=== PATIENT | male | born 1955 | race Caucasian/White ===

== ENCOUNTER 2020-06-17 17:28 | Inpatient (IN) | payer OTHER, SELFPAY ==
[2020-06-17] VITALS (8 sets, daily range): BP systolic 138–178; BP diastolic 95–101; PULSE 70–115; RESP 16–20; TEMP 36.5–37; O2SAT 94–98; BMI 25.7
--- NOTE | 2020-06-17 18:07 | ED.ABDPAIN ---
HPI - Abdominal Pain General Chief Complaint: Abdominal Pain Stated Complaint: intestinal troubles Time Seen by Provider: 06/17/20 18:00 Source: patient Mode of arrival: Ambulatory Limitations: no limitations History of Present Illness HPI narrative: 64M non smoker without significant medical history presents with a chief complaint of a few days of gradually worsening generalized abdominal pain nausea, few episodes of vomiting and bloating. He is concerned that he ate some bad food on Tuesday night as he consumed a meal he obtained from [employer] and had been out longer than it probably should have. He denies any fever chills and has had no diarrhea. His pain is periumbilical and worse with motion and improves with rest. He has decreased appetite. He had a small hard stool this morning but nothing since. His only surgical history is of of umbilical hernia repair when he was an infant MD complaint: abdominal pain Onset (ago): day(s) Pain Consistency: constant Location: periumbilical Severity: moderate Quality: cramping Migration to: no migration Relieving factors: nothing and rest Exacerbating factors: movement Associated symptoms: nausea and vomiting Related Data Home Medications Medication Instructions Recorded Confirmed lisinopril 5 mg PO DAILY 06/17/20 06/17/20 Allergies Allergy/AdvReac Type Severity Reaction Status Date / Time No Known Drug Allergies Allergy Verified 06/17/20 17:39 Review of Systems Constitutional Constitutional: Denies chills, Denies fatigue, Denies fever(s), Denies frequent falls, Denies lethargy and Denies weakness Eyes Eyes: Denies change in vision, Denies eye discharge, Denies irritation and Denies loss of vision ENT Ears, Nose, Mouth, and Throat: Denies change in voice, Denies dizziness, Denies neck pain, Denies sore throat and Denies throat swelling Cardiovascular Cardiovascular: Denies chest pain, Denies irregular heart rhythm, Denies lightheadedness, Denies palpitations, Denies dyspnea, Denies dyspnea on exertion and Denies orthopnea Respiratory Respiratory: Denies cough, Denies dyspnea, Denies dyspnea on exertion and Denies wheezing Gastrointestinal Gastrointestinal: Reports abdominal pain, Reports change in bowel habits, Denies diarrhea, Reports nausea and Reports vomiting Musculoskeletal Musculoskeletal: Denies neck pain and Denies numbness Integumentary/Breasts Skin/Breast: Denies pruritus, Denies erythema, Denies rash and Denies wounds Neurologic Neurologic: Denies behavioral changes, Denies confusion, Denies dizziness, Denies frequent falls, Denies loss of vision, Denies numbness and Denies weakness Psychiatric Psychiatric: Denies anxiety, Denies behavioral changes, Denies confusion, Denies depression, Denies homicidal ideation and Denies suicidal ideation Endocrine Endocrine: Denies fatigue, Denies flushing and Denies palpitations Hematologic/Lymphatic Hematologic/Lymphatic: Denies easy bruising Allergic/Immunologic Allergic/Immunologic: Denies urticaria, Denies throat swelling and Denies wheezing Patient History Social History household members: spouse Smoking Status: Never smoker alcohol intake: former Smoking Status: Never smoker alcohol intake frequency: 0-2 drinks per day Substance Use Type: does not use Exam Narrative Exam Narrative: GENERAL: [64] year old patient appears stated age. Well-nourished, well-developed patient, in mild distress. HEAD: Atraumatic. Normocephalic. EYES: Pupils equal round and reactive. Extraocular motions intact. No scleral icterus. No injection or drainage. ENT: Nose without bleeding, purulent drainage. Throat without erythema, tonsillar hypertrophy or exudate. Airway patent. NECK: Trachea midline. Non tender CARDIOVASCULAR: Regular rate and rhythm without murmurs, gallops, or rubs. RESPIRATORY: Clear to auscultation. Breath sounds equal bilaterally. No wheezes, rales, or rhonchi. GASTROINTESTINAL: Abdomen soft, mildly distended, mildly tender in the periumbilical region with decreased bowel sounds throughout. EXTREMITIES: No edema or joint tenderness. BACK: Nontender without deformity or crepitance. No flank tenderness. NEURO: AOx3. SKIN: No rash or erythema of visible areas Initial Vital Signs Initial Vital Signs: Vital Signs Temperature 97.7 F 06/17/20 17:35 Pulse Rate 115 H 06/17/20 17:35 Respiratory Rate 20 06/17/20 17:35 Blood Pressure 157/98 H 06/17/20 17:35 Pulse Oximetry 96 06/17/20 17:35 Scores ABCD2 Citation: Lancet. 2006Nov 05;369(1151):283-92. Validation and refinement of scores to predict very early stroke risk after transient ischaemic attack. Rhianna SC1, Brent PM, Antony MN, Jesus MF, Chad JS, Moon AL, Jefe Oliva Course Orders Ordered: ED Orders 06/17/20 17:51 EKG-12 Lead Stat 06/17/20 17:53 Complete Blood Count AUTO DIFF Stat Comprehensive Metabolic Panel Stat Lipase Stat Partial Thromboplastin Time Stat Prothrombin Time INR Stat 06/17/20 18:25 XR acute abdomen series Stat 06/17/20 18:52 COVID19 -ED/INPAT/OR/L&D Stat 06/17/20 18:54 CT abdomen pelvis w con Stat Benzocaine (Cepacol Lozenge) 1 each PO Q4HR PRN PRN Reason: Sore Throat Benzocaine/Butamben/Tetracaine HCl (Cetacaine [place]) 1 spray TOP PRN PRN PRN Reason: Sore Throat Lactated Ringer's (Lactated Ringers) 1,000 mls @ 125 mls/hr IV CONT KETURAH Last Admin: 06/17/20 21:09 Dose: 125 mls/hr Documented by: CLIFF Ondansetron HCl (Zofran) 4 mg IV Q4HR PRN PRN Reason: Nausea And Vomiting Discontinued Medications Sodium Chloride (Normal Saline 0.9%) 1,000 mls @ 1,000 mls/hr IV BOLUS ONE Stop: 06/17/20 19:28 Last Infusion: 06/17/20 20:24 Dose: 0 mls/hr Documented by: Admin: 06/17/20 18:38 Dose: 1,000 mls/hr Documented by: ARTEM Consultations Consultation #1: call to Dr. Zaidi after seeing Xray, she recommends CT, NG tube, and admission Vital Signs Vital signs: Vital Signs - 8 hr 06/17/20 17:35 06/17/20 18:36 06/17/20 19:07 Temperature 97.7 F Pulse Rate 115 H 99 H 92 H Respiratory Rate 20 Blood Pressure 157/98 H 159/98 H Pulse Oximetry 96 94 97 06/17/20 19:08 Temperature Pulse Rate 91 H Respiratory Rate Blood Pressure 138/97 H Pulse Oximetry 97 MDM - Abdominal Pain Lab Data Result diagrams: 06/17/20 17:53 06/17/20 17:53 Labs: Lab Results 09/08/20 09/08/20 09/08/20 Range/Units 17:53 17:53 17:53 WBC 9.7 (4.5-11.0) X10^3/uL RBC 5.34 (4.5-5.9) X10^6/uL Hgb 16.4 (13.5-17.5) g/dL Hct 48.3 (41-53) % MCV 90.5 (80-100) fL MCH 30.6 (26-34) PG MCHC 33.9 (30-36) % RDW 13.5 (11.6-14.8) % Plt Count 252 (150-400) X10^3/uL Neut % (Auto) 74.6 (50-75) % Lymph % (Auto) 12.3 L (25-40) % [place] % (Auto) 12.5 (3-14) % Eos % (Auto) 0.3 L (2-4) % Baso % (Auto) 0.3 (0-2) % Neut # (Auto) 7200 H (0044-0613) /uL Lymph # (Auto) 1200 (2421-9228) /uL [place] # (Auto) 1200 H (0-900) /uL Eos # (Auto) 0 (0-450) /uL Baso # (Auto) 0 (0-100) /uL PT 14.3 H (10.1-12.7) SECONDS INR 1.2 (0.9-1.3) APTT 31 (26.4-36.2) SECONDS Sodium 136 L (137-145) mmol/L Potassium 3.8 (3.4-5.1) mmol/L Chloride 97 L (98-107) mmol/L Carbon Dioxide 30 (22-32) mmol/L BUN 35 H (9-20) mg/dL Creatinine 0.92 (0.66-1.25) mg/dL Estimated GFR > 60.0 (>60) mL/min BUN/Creatinine Ratio 38.0 H (6-22) Glucose 142 H (80-110) mg/dL Calcium 9.7 (8.4-10.2) mg/dL Total Bilirubin 1.1 (0.2-1.3) mg/dL AST 32 (17-59) IU/L ALT 22 (<50) IU/L Alkaline Phosphatase 66 (38-126) U/L Total Protein 7.9 (6.3-8.2) g/dL Albumin 4.3 (3.5-5.0) g/dL Globulin 3.6 (1.7-4.1) g/dL Albumin/Globulin Ratio 1.2 (1.0-2.8) Lipase 160 (23-300) U/L COVID-19 PCR (Negative) 06/17/20 Range/Units 18:52 WBC (4.5-11.0) X10^3/uL RBC (4.5-5.9) X10^6/uL Hgb (13.5-17.5) g/dL Hct (41-53) % MCV (80-100) fL MCH (26-34) PG MCHC (30-36) % RDW (11.6-14.8) % Plt Count (150-400) X10^3/uL Neut % (Auto) (50-75) % Lymph % (Auto) (25-40) % [place] % (Auto) (3-14) % Eos % (Auto) (2-4) % Baso % (Auto) (0-2) % Neut # (Auto) (8788-4445) /uL Lymph # (Auto) (9194-9581) /uL [place] # (Auto) (0-900) /uL Eos # (Auto) (0-450) /uL Baso # (Auto) (0-100) /uL PT (10.1-12.7) SECONDS INR (0.9-1.3) APTT (26.4-36.2) SECONDS Sodium (137-145) mmol/L Potassium (3.4-5.1) mmol/L Chloride (98-107) mmol/L Carbon Dioxide (22-32) mmol/L BUN (9-20) mg/dL Creatinine (0.66-1.25) mg/dL Estimated GFR (>60) mL/min BUN/Creatinine Ratio (6-22) Glucose (80-110) mg/dL Calcium (8.4-10.2) mg/dL Total Bilirubin (0.2-1.3) mg/dL AST (17-59) IU/L ALT (<50) IU/L Alkaline Phosphatase (38-126) U/L Total Protein (6.3-8.2) g/dL Albumin (3.5-5.0) g/dL Globulin (1.7-4.1) g/dL Albumin/Globulin Ratio (1.0-2.8) Lipase (23-300) U/L COVID-19 PCR Negative (Negative) Imaging Data CT scan - abdomen/pelvis: Radiologist's Impression: Chart Viewer Diagnostics DATE TYPE STATUS REF RANGE/AUTHOR Hx 06/17/20 19:46 CristobalSerenity 06/17/20 18:54 Serenity Jain 06/17/20 18:25 Serenity Jain Timothy 64, M1955 ADM IN, AC 218 -1 187.96cm 90.718kg BMI: 25.7kg/m? Search Chart No Data to Display ONSET 06/17/20 23:53 Lul Mckinnon 64 M 1955 [place] [address] CT Scan Report Signed Patient: Lul MckinnonMR#: [id number] : 4Acct:[id number] Age/Sex: 64 / MDate of Service: 06/17/20 Loc: OD17B-9 Accession Number: [id number] Procedure: CT abdomen pelvis w con Ordering Provider: Nando Fregoso D.O. PROCEDURE: CT ABDOMEN PELVIS W CON INDICATIONS: SBO TECHNIQUE: After the administration of intravenous contrast, 5 mm thick sections acquired from the diaphragm to the symphysis. 5 mm coronal and sagittal reformats were acquired. For radiation dose reduction, the following was used: automated exposure control, adjustment of mA and/or kV according to patient size. COMPARISON: [facility], CR, XR ACUTE ABDOMEN SERIES, 06/17/2020, 18:18. FINDINGS: Image quality: Excellent. ABDOMEN: Lung bases: Lung bases are clear. Heart size is normal. Solid organs: Liver is normal in size and enhancement. Hepatic steatosis is present. Multiple low-attenuation foci are present with Hounsfield units less than 20. The largest is present in the anterior right hepatic lobe measuring 36 mm. Gallbladder is unremarkable . Biliary system is non dilated. Pancreas enhances normally. Spleen is normal in size and enhancement. No adrenal nodules. Kidneys demonstrate normal size and enhancement, without hydronephrosis. Punctate non-obstructing inferior right renal pole calculus is present. Peritoneum and bowel: Bowel loops demonstrate significantly dilated fluid-filled loops of small bowel including prominent gastric dilation. Greatest dimension of gas of small-bowel dilation measures 39 mm. Transition point appears to be within the right madelaine abdomen on series 2, image 55. In addition, it is noted that there is Nodes and vessels: No retroperitoneal or mesenteric adenopathy by size criteria. Aorta and inferior vena cava are normal in size. Miscellaneous: No ventral hernias. PELVIS: Genitourinary: Bladder wall thickness is normal. Miscellaneous: There is small low-density focus within the right inguinal canal which appears to represent fluid. This area of fluid becomes contiguous with a dilated loop of adjacent small bowel within the anterior pelvis. No definitive bowel is identified within the hernia site. Bones: No suspicious bony lesions. No vertebral body compression fractures. IMPRESSION: 1. Partial small bowel obstruction as above. Transition point appears to be within the right hemiabdomen as above. 2. In addition, small focus of fluid within the right inguinal canal becoming approximated with a dilated loop of small bowel within the pelvis. This appears to represent fluid without definitively identified bowel. However, recommend correlation to pain within this region as a very small focus of collapsed bowel obscured by fluid cannot be definitively excluded. Dictated by: Serenity Jain M.D. on 06/17/2020 at 19:45 Approved by: Serenity Jain M.D. on 06/17/2020 at 19:52 Discharge Plan Departure Patient Disposition: Admitted As Inpatient Clinical Impression: Small bowel obstruction Discharge Date/Time: 06/17/20 20:25 Admit Date/Time: 06/17/20 19:25 Admit Provider: Pam Zaidi
[2020-06-17 18:10] LABS: Add Manual Diff / Slide Review NO; Basophils Absolute Auto 0 /uL (0-100); Basophils Percent Auto 0.3 % (0-2); Eosinophils Absolute Auto 0 /uL (0-450); Eosinophils Percent Auto 0.3 % (2-4); Hematocrit 48.3 % (41-53); Hemoglobin 16.4 g/dL (13.5-17.5); Lymphocytes Absolute Auto 1200 /uL (1100-4500); Lymphocytes Percent Auto 12.3 % (25-40); Mean Corpuscular HGB Conc 33.9 % (30-36); Mean Corpuscular Hemoglobin 30.6 PG (26-34); Mean Corpuscular Volume 90.5 fL (80-100); Monocytes Absolute Auto 1200 /uL (0-900); Monocytes Percent Auto 12.5 % (3-14); Neutrophils Absolute Auto 7200 /uL (1500-7000); Neutrophils Percent Auto 74.6 % (50-75); Platelet Count 252 X10^3/uL (150-400); Red Blood Cell Count 5.34 X10^6/uL (4.5-5.9); Red Cell Distribution Width 13.5 % (11.6-14.8); White Blood Cell Count 9.7 X10^3/uL (4.5-11.0)
[2020-06-17 18:14] LABS: INR 1.2 (0.9-1.3); Prothrombin Time 14.3 SECONDS (10.1-12.7)
[2020-06-17 18:17] LABS: PTT Partial Thromboplastin Tim 31 SECONDS (26.4-36.2)
[2020-06-17 18:18] LABS: Alanine Aminotransferase 22 IU/L (<50); Albumin 4.3 g/dL (3.5-5.0); Albumin Globulin Ratio 1.2 (1.0-2.8); Alkaline Phosphatase 66 U/L (38-126); Aspartate Aminotransferase 32 IU/L (17-59); Bilirubin Total 1.1 mg/dL (0.2-1.3); Blood Urea Nitrogen 35 mg/dL (9-20); Calcium 9.7 mg/dL (8.4-10.2); Carbon Dioxide 30 mmol/L (22-32); Chloride 97 mmol/L (98-107); Estimated Glomerular Filt Rate > 60.0 mL/min (>60); Globulin 3.6 g/dL (1.7-4.1); Glucose 142 mg/dL (80-110); HEMOLYSIS < 15 (0-50); Lipase 160 U/L (23-300); Potassium 3.8 mmol/L (3.4-5.1); Sodium 136 mmol/L (137-145); Total Protein 7.9 g/dL (6.3-8.2)
--- NOTE | 2020-06-17 18:25 | DI.RAD.S_ITS ---
PROCEDURE: XR ACUTE ABDOMEN SERIES INDICATIONS: Abdominal pain, N/V, fullness TECHNIQUE: One view chest and two views of the abdomen were acquired. COMPARISON: None. FINDINGS: Surgical changes and devices: None. Chest: Lungs are clear. Heart size is normal. No pleural effusions. No pneumoperitoneum. Abdomen: [id number]-kveixfiz fluid-filled dilation of small bowel loops with air-fluid levels. No suspicious calcifications. Visualized solid organ contours appear normal. Bones: No suspicious bony lesions. IMPRESSION: [id number] partial small bowel obstruction. Dictated by: Serenity Jain M.D. on 06/17/2020 at 18:41 Approved by: Serenity Jain M.D. on 06/17/2020 at 18:41
[2020-06-17] MEDS: SODIUM CHLORIDE 0.9% 1,000 ML 1000 ML IV (18:38)
--- NOTE | 2020-06-17 18:54 | DI.CT.S_ITS ---
PROCEDURE: CT ABDOMEN PELVIS W CON INDICATIONS: SBO TECHNIQUE: After the administration of intravenous contrast, 5 mm thick sections acquired from the diaphragm to the symphysis. 5 mm coronal and sagittal reformats were acquired. For radiation dose reduction, the following was used: automated exposure control, adjustment of mA and/or kV according to patient size. COMPARISON: [facility], CR, XR ACUTE ABDOMEN SERIES, 06/17/2020, 18:18. FINDINGS: Image quality: Excellent. ABDOMEN: Lung bases: Lung bases are clear. Heart size is normal. Solid organs: Liver is normal in size and enhancement. Hepatic steatosis is present. Multiple low-attenuation foci are present with Hounsfield units less than 20. The largest is present in the anterior right hepatic lobe measuring 36 mm. Gallbladder is unremarkable . Biliary system is non dilated. Pancreas enhances normally. Spleen is normal in size and enhancement. No adrenal nodules. Kidneys demonstrate normal size and enhancement, without hydronephrosis. Punctate non-obstructing inferior right renal pole calculus is present. Peritoneum and bowel: Bowel loops demonstrate significantly dilated fluid-filled loops of small bowel including prominent gastric dilation. Greatest dimension of gas of small-bowel dilation measures 39 mm. Transition point appears to be within the right madelaine abdomen on series 2, image 55. In addition, it is noted that there is Nodes and vessels: No retroperitoneal or mesenteric adenopathy by size criteria. Aorta and inferior vena cava are normal in size. Miscellaneous: No ventral hernias. PELVIS: Genitourinary: Bladder wall thickness is normal. Miscellaneous: There is small low-density focus within the right inguinal canal which appears to represent fluid. This area of fluid becomes contiguous with a dilated loop of adjacent small bowel within the anterior pelvis. No definitive bowel is identified within the hernia site. Bones: No suspicious bony lesions. No vertebral body compression fractures. IMPRESSION: 1. Partial small bowel obstruction as above. Transition point appears to be within the right hemiabdomen as above. 2. In addition, small focus of fluid within the right inguinal canal becoming approximated with a dilated loop of small bowel within the pelvis. This appears to represent fluid without definitively identified bowel. However, recommend correlation to pain within this region as a very small focus of collapsed bowel obscured by fluid cannot be definitively excluded. Dictated by: Serenity Jain M.D. on 06/17/2020 at 19:45 Approved by: Serenity aJin M.D. on 06/17/2020 at 19:52
[2020-06-17 19:14] LABS: COVID19 -Nasal RAPID Negative (Negative)
--- NOTE | 2020-06-17 19:46 | DI.RAD.S_ITS ---
PROCEDURE: XR CHEST 1V INDICATIONS: NG tube placement check TECHNIQUE: One view of the chest was acquired. COMPARISON: [facility], CT, CT ABDOMEN PELVIS W CON, 06/17/2020, 18:59. [facility], CR, XR ACUTE ABDOMEN SERIES, 06/17/2020, 18:18. FINDINGS: Surgical changes and devices: There has been interval placement of nasogastric tube with distal tip projecting below the left hemidiaphragm. Lungs and pleura: Lungs are clear. No pleural effusions or pneumothorax. Mediastinum: Mediastinal contours appear normal. Heart size is normal. Bones and chest wall: No suspicious bony lesions. Overlying soft tissues appear unremarkable. Miscellaneous: Dilated fluid-filled loops of small bowel are noted within visualized portions of the abdomen. IMPRESSION: Interval placement nasogastric tube as above. Dilated fluid-filled loops of small bowel as above consistent with prior identification of partial small bowel obstruction. Dictated by: Serenity Jain M.D. on 06/17/2020 at 20:14 Approved by: Serenity Jain M.D. on 06/17/2020 at 20:14
[2020-06-17 19:59] LABS: Bacteria Urine None Seen; RBC Urine None Seen (0-5/HPF)
[2020-06-17 20:08] LABS: Calcium Oxalate Crystals Urine Few; Culture Indicated Urine Cult Not Indicated; WBC Urine 0-1/HPF (0-5/HPF)
--- NOTE | 2020-06-17 20:23 | PM.HP.1 ---
History of Present Illness History of Present Illness Date Patient Seen: 06/17/20 Time Patient Seen: 20:23 Chief complaint: intestinal troubles Narrative: This is a 64 yo man with history of HTN, bilateral inguinal hernia repair as a child, and recurrent inguinal hernia on the right side. On Tuesday he ate some chicken that had been sitting out for a while. Afterward, he began to have stomach cramps. The pain down into a bloated feeling, but he has not passed any gas since Tuesday. He had a small hard BM yesterday. He came into the ER because he could not get any relief. He has never had an episode like this before. He reports that he is very healthy. PMH: HTN PSH: bilateral inguinal hernia repair in childhood SOC: denies tob, denies EtOH for past 1 year, occasional marijuana FMH: denies HTN, DM, GI disorders ALlergies: denies HOme meds: Lisinopril ROS: Pt denies headache, fever, weight loss, dysuria, confusion, melena, hematochezia. Thirteen system review is otherwise negative other than as mentioned below and in HPI. PE: GENERAL: Well groomed and cooperative. Appears stated age. Answers questions promptly and appropriately. Vital signs noted. HENT: Normocephalic, atraumatic. Hearing intact. Oral mucosa is pink and moist. NGT in place sumping thick brown and bilious material EYES: Conjunctiva pink, sclera white, no periorbital swelling. CARDIOVASCULAR: Regular rate. No pedal edema. RESPIRATORY: Non-tachypneic, breathing comfortably on room air. GASTROINTESTINAL: Abdomen soft, nontender, moderately distended GENITALURINARY: No flank tenderness. soft, reducible right inguinal hernia, no palpable left inguinal hernia MUSCULOSKELETAL: Equal tone and mass bilaterally. SKIN: Warm, dry, soft, appropriate color for ethnicity. No other lesions, rashes, or wounds. NEURO: Alert and Oriented X 3. No gross sensory deficits, or cognitive issues. PSYCH: Appropriate mood and affect, normal intellect Patient History Family & Social History Safety & Behavioral: Feels Safe in Current Yes Environment Been Physically Hurt or No Threatened By a Person Tobacco & Substance use: Smoking Status Never smoker alcohol intake frequency 0-2 drinks per day Substance Use Type does not use Meds Home Medications and Allergies Home Medications Medication Instructions Recorded Confirmed Type lisinopril 5 mg PO DAILY 06/17/20 06/17/20 History Allergies Allergy/AdvReac Type Severity Reaction Status Date / Time No Known Drug Allergies Allergy Verified 06/17/20 17:39 Exam Vital Signs (past 8 hours): - 06/17/20 17:35 06/17/20 18:36 06/17/20 19:07 Temperature 97.7 F Pulse Rate 115 H 99 H 92 H Respiratory Rate 20 Blood Pressure 157/98 H 159/98 H Pulse Oximetry 96 94 97 06/17/20 19:08 06/17/20 19:30 06/17/20 20:11 Temperature Pulse Rate 91 H 83 90 Respiratory Rate Blood Pressure 138/97 H 167/95 H Pulse Oximetry 97 97 96 Oxygen Delivery Method Room Air Objective Imaging CT scan - abdomen: Radiologist's impression: [address] [address] [address] Scan Report Signed Patient: Lul MckinnonMR#: [id number] : 4Acct:[id number] Age/Sex: 64 / MDate of Service: 06/17/20 Loc: [id number]-4 Accession Number: [id number] Procedure: CT abdomen pelvis w con Ordering Provider: Nando Fregoso D.O. PROCEDURE: CT ABDOMEN PELVIS W CON INDICATIONS: SBO TECHNIQUE: After the administration of intravenous contrast, 5 mm thick sections acquired from the diaphragm to the symphysis. 5 mm coronal and sagittal reformats were acquired. For radiation dose reduction, the following was used: automated exposure control, adjustment of mA and/or kV according to patient size. COMPARISON: [facility], CR, XR ACUTE ABDOMEN SERIES, 06/17/2020, 18:18. FINDINGS: Image quality: Excellent. ABDOMEN: Lung bases: Lung bases are clear. Heart size is normal. Solid organs: Liver is normal in size and enhancement. Hepatic steatosis is present. Multiple low-attenuation foci are present with Hounsfield units less than 20. The largest is present in the anterior right hepatic lobe measuring 36 mm. Gallbladder is unremarkable . Biliary system is non dilated. Pancreas enhances normally. Spleen is normal in size and enhancement. No adrenal nodules. Kidneys demonstrate normal size and enhancement, without hydronephrosis. Punctate non-obstructing inferior right renal pole calculus is present. Peritoneum and bowel: Bowel loops demonstrate significantly dilated fluid-filled loops of small bowel including prominent gastric dilation. Greatest dimension of gas of small-bowel dilation measures 39 mm. Transition point appears to be within the right madelaine abdomen on series 2, image 55. In addition, it is noted that there is Nodes and vessels: No retroperitoneal or mesenteric adenopathy by size criteria. Aorta and inferior vena cava are normal in size. Miscellaneous: No ventral hernias. PELVIS: Genitourinary: Bladder wall thickness is normal. Miscellaneous: There is small low-density focus within the right inguinal canal which appears to represent fluid. This area of fluid becomes contiguous with a dilated loop of adjacent small bowel within the anterior pelvis. No definitive bowel is identified within the hernia site. Bones: No suspicious bony lesions. No vertebral body compression fractures. IMPRESSION: 1. Partial small bowel obstruction as above. Transition point appears to be within the right hemiabdomen as above. 2. In addition, small focus of fluid within the right inguinal canal becoming approximated with a dilated loop of small bowel within the pelvis. This appears to represent fluid without definitively identified bowel. However, recommend correlation to pain within this region as a very small focus of collapsed bowel obscured by fluid cannot be definitively excluded. Dictated by: Serenity Jain M.D. on 06/17/2020 at 19:45 Approved by: Serenity Jain M.D. on 06/17/2020 at 19:52 Labs Result Diagrams: 06/17/20 17:53 06/17/20 17:53 Labs: Laboratory Results - last 24 hr 06/17/20 06/17/20 06/17/20 17:53 17:53 17:53 WBC 9.7 RBC 5.34 Hgb 16.4 Hct 48.3 MCV 90.5 MCH 30.6 MCHC 33.9 RDW 13.5 Plt Count 252 Neut % (Auto) 74.6 Lymph % (Auto) 12.3 L [place] % (Auto) 12.5 Eos % (Auto) 0.3 L Baso % (Auto) 0.3 Neut # (Auto) 7200 H Lymph # (Auto) 1200 [place] # (Auto) 1200 H Eos # (Auto) 0 Baso # (Auto) 0 PT 14.3 H INR 1.2 APTT 31 Sodium 136 L Potassium 3.8 Chloride 97 L Carbon Dioxide 30 BUN 35 H Creatinine 0.92 Estimated GFR > 60.0 BUN/Creatinine Ratio 38.0 H Glucose 142 H Calcium 9.7 Total Bilirubin 1.1 AST 32 ALT 22 Alkaline Phosphatase 66 Total Protein 7.9 Albumin 4.3 Globulin 3.6 Albumin/Globulin Ratio 1.2 Lipase 160 Urine RBC Urine WBC Calcium Oxalate Crystal Urine Bacteria Ur Culture Indicated? COVID-19 PCR 06/17/20 06/17/20 18:52 19:37 WBC RBC Hgb Hct MCV MCH MCHC RDW Plt Count Neut % (Auto) Lymph % (Auto) [place] % (Auto) Eos % (Auto) Baso % (Auto) Neut # (Auto) Lymph # (Auto) [place] # (Auto) Eos # (Auto) Baso # (Auto) PT INR APTT Sodium Potassium Chloride Carbon Dioxide BUN Creatinine Estimated GFR BUN/Creatinine Ratio Glucose Calcium Total Bilirubin AST ALT Alkaline Phosphatase Total Protein Albumin Globulin Albumin/Globulin Ratio Lipase Urine RBC None seen Urine WBC 0-1/hpf Calcium Oxalate Crystal Few H Urine Bacteria None seen Ur Culture Indicated? Cult not indicated COVID-19 PCR Negative Assessment & Plan Assessment and plan (1) Small bowel obstruction: Status: Acute (2) History of right inguinal hernia repair: Status: Acute (3) Recurrent right inguinal hernia: Status: Acute (4) Hypertension: Status: Acute Assessment & Plan narrative: This is a 64 yo man with SBO, which appears to be due to adhesions in his RLQ near his inguinal hernia, but not incarcerated in it. He had a prior repair there as a child and could possibly have an adhesions causing the obstruction. Plan: NPO NGT IV fluids electrolyte repletion ambulate as tolerated SBFT in AM COVID-19 COVID-19 status: Negative Result date/Date tested (Pos, Neg/Pending): 06/17/20 Time Spent With Patient Time with patient: 25 - 35 minutes Quality VTE Deep Vein Thrombosis/Pulmonary Embolism Present on Admission: No
[2020-06-17] MEDS: LACTATED RINGERS 1,000 ML 125 ML IV (21:09)
--- NOTE | 2020-06-17 23:08 | PC.NURSE ---
A&OX4. denied pain. feels bloated. NG tube was not suctioning. NG was flushed with water and air frequently. NG output is very thick, greenish fluid. abdomen slightly distended, reports feeling better after 1450cc NG output. per provider, set NG tube low intermittent suction. provider aware regarding the need for patient's NG tube to be flushed.
[2020-06-18 05:12] LABS: Add Manual Diff / Slide Review NO; Basophils Absolute Auto 0 /uL (0-100); Basophils Percent Auto 0.5 % (0-2); Eosinophils Absolute Auto 100 /uL (0-450); Eosinophils Percent Auto 1.6 % (2-4); Hematocrit 44.6 % (41-53); Lymphocytes Absolute Auto 1300 /uL (1100-4500); Lymphocytes Percent Auto 17.9 % (25-40); Mean Corpuscular HGB Conc 33.5 % (30-36); Mean Corpuscular Hemoglobin 30.5 PG (26-34); Monocytes Absolute Auto 1200 /uL (0-900); Monocytes Percent Auto 15.9 % (3-14); Neutrophils Absolute Auto 4800 /uL (1500-7000); Neutrophils Percent Auto 64.1 % (50-75); Platelet Count 197 X10^3/uL (150-400); Red Cell Distribution Width 13.4 % (11.6-14.8); White Blood Cell Count 7.4 X10^3/uL (4.5-11.0)
[2020-06-18 05:17] LABS: BUN Creatinine Ratio 45.9 (6-22); Blood Urea Nitrogen 34 mg/dL (9-20); Carbon Dioxide 32 mmol/L (22-32); Chloride 100 mmol/L (98-107); Estimated Glomerular Filt Rate > 60.0 mL/min (>60); Glucose 103 mg/dL (80-110); HEMOLYSIS < 15 (0-50); Magnesium 1.9 mg/dL (1.6-2.3); Phosphorous 3.9 mg/dL (2.3-3.7); Potassium 3.7 mmol/L (3.4-5.1); Sodium 136 mmol/L (137-145)
[2020-06-18] MEDS: LACTATED RINGERS 1,000 ML 125 ML IV (05:31)
[2020-06-18 05:51] VITALS: BP 138/86; PULSE 69; RESP 16; TEMP 36.2; O2SAT 94
[2020-06-18] MEDS: KCL 40 MEQ IN NS 1,000 ML 100 MEQ IV (06:29)
[2020-06-18] MEDS: MAGNESIUM SULFATE 2 GM/50 ML PIGGYBACK IV (06:30)
--- NOTE | 2020-06-18 07:00 | DI.RAD.S_ITS ---
PROCEDURE: [place] SMALL BOWEL FOLLOW THROUGH INDICATIONS: SBO, diagnostic and therapeutic COMPARISON: [facility], CT, CT ABDOMEN PELVIS W CON, 06/17/2020, 18:59. FINDINGS: KUB: Preprocedural claims technician film demonstrates persistence of multiple scattered loops of dilated small bowel as noted on comparison CT dated June 17, 2020. No suspicious abdominal calcifications. Visualized solid organ contours appear normal. No suspicious bony abnormalities. Small bowel/colon: There is prolonged transit time of oral contrast through the small bowel. Imaging of the abdomen approximately 10 hours after administration of oral contrast before oral contrast material is visualized within the colon. Contrast material is noted in the rectum at the end of the exam. There is persistent dilated loops of small bowel measuring up to 5 cm in diameter. Mucosal folds are smooth and of normal thickness. No strictures, intraluminal masses, or extrinsic mass effects are noted. IMPRESSION: Persistent dilated loops of small bowel with prolonged transit of ingested oral contrast from the stomach to the rectum. Dictated by: Linus nOeal M.D. on 06/18/2020 at 19:39 Approved by: Linus Oneal M.D. on 06/18/2020 at 19:47
--- NOTE | 2020-06-18 07:47 | PM.PN.1 ---
Subjective Subjective Date Patient Seen: 06/18/20 Time Patient Seen: 07:47 Interval history: No acute events overnight. Nurses flushed and suctioned very thick fluid through the NGT until it was finally sumping well. The patient says he feels less bloated today. He denies flatus or pain. Exam Vital Signs (past 8 hours): - 06/17/20 23:53 06/18/20 05:51 Temperature 97.9 F 97.2 F L Pulse Rate 70 69 Respiratory Rate 18 16 Blood Pressure 144/98 H 138/86 Pulse Oximetry 95 94 Oxygen Delivery Method Room Air Oxygen Flow Rate 0 Objective Labs Result Diagrams: 06/18/20 04:50 06/18/20 04:50 Labs: Laboratory Results - last 24 hr 06/17/20 06/17/20 06/17/20 17:53 17:53 17:53 WBC 9.7 RBC 5.34 Hgb 16.4 Hct 48.3 MCV 90.5 MCH 30.6 MCHC 33.9 RDW 13.5 Plt Count 252 Neut % (Auto) 74.6 Lymph % (Auto) 12.3 L [place] % (Auto) 12.5 Eos % (Auto) 0.3 L Baso % (Auto) 0.3 Neut # (Auto) 7200 H Lymph # (Auto) 1200 [place] # (Auto) 1200 H Eos # (Auto) 0 Baso # (Auto) 0 PT 14.3 H INR 1.2 APTT 31 Sodium 136 L Potassium 3.8 Chloride 97 L Carbon Dioxide 30 BUN 35 H Creatinine 0.92 Estimated GFR > 60.0 BUN/Creatinine Ratio 38.0 H Glucose 142 H Calcium 9.7 Phosphorus Magnesium Total Bilirubin 1.1 AST 32 ALT 22 Alkaline Phosphatase 66 Total Protein 7.9 Albumin 4.3 Globulin 3.6 Albumin/Globulin Ratio 1.2 Lipase 160 Urine RBC Urine WBC Calcium Oxalate Crystal Urine Bacteria Ur Culture Indicated? COVID-19 PCR 06/17/20 06/17/20 06/18/20 18:52 19:37 04:50 WBC 7.4 RBC 4.90 Hgb 15.0 Hct 44.6 MCV 91.0 MCH 30.5 MCHC 33.5 RDW 13.4 Plt Count 197 Neut % (Auto) 64.1 Lymph % (Auto) 17.9 L [place] % (Auto) 15.9 H Eos % (Auto) 1.6 L Baso % (Auto) 0.5 Neut # (Auto) 4800 Lymph # (Auto) 1300 [place] # (Auto) 1200 H Eos # (Auto) 100 Baso # (Auto) 0 PT INR APTT Sodium Potassium Chloride Carbon Dioxide BUN Creatinine Estimated GFR BUN/Creatinine Ratio Glucose Calcium Phosphorus Magnesium Total Bilirubin AST ALT Alkaline Phosphatase Total Protein Albumin Globulin Albumin/Globulin Ratio Lipase Urine RBC None seen Urine WBC 0-1/hpf Calcium Oxalate Crystal Few H Urine Bacteria None seen Ur Culture Indicated? Cult not indicated COVID-19 PCR Negative 06/18/20 04:50 WBC RBC Hgb Hct MCV MCH MCHC RDW Plt Count Neut % (Auto) Lymph % (Auto) [place] % (Auto) Eos % (Auto) Baso % (Auto) Neut # (Auto) Lymph # (Auto) [place] # (Auto) Eos # (Auto) Baso # (Auto) PT INR APTT Sodium 136 L Potassium 3.7 Chloride 100 Carbon Dioxide 32 BUN 34 H Creatinine 0.74 Estimated GFR > 60.0 BUN/Creatinine Ratio 45.9 H Glucose 103 Calcium 9.0 Phosphorus 3.9 H Magnesium 1.9 Total Bilirubin AST ALT Alkaline Phosphatase Total Protein Albumin Globulin Albumin/Globulin Ratio Lipase Urine RBC Urine WBC Calcium Oxalate Crystal Urine Bacteria Ur Culture Indicated? COVID-19 PCR Assessment & Plan Assessment and plan (1) Hypertension: Status: Acute (2) Recurrent right inguinal hernia: Status: Acute (3) History of right inguinal hernia repair: Status: Acute (4) Small bowel obstruction: Status: Acute Assessment & Plan narrative: 64-year-old man admitted with small-bowel obstruction. Quite a bit of sick bowel content was suctioned out via the NG tube last evening. He feels a little bit better today. We still are planning to do a small-bowel follow-through today. We will also have him ambulate as much as possible. Plan NG tube, NPO, IV fluids Small-bowel follow-through Ambulate as much as possible Subsequent plan pending small-bowel follow-through results DVT prophylaxis GI prophylaxis COVID-19 COVID-19 status: Negative Result date/Date tested (Pos, Neg/Pending): 06/17/20 Time Spent With Patient Time with patient: 15-24 minutes Quality VTE Deep Vein Thrombosis/Pulmonary Embolism Present on Admission: No
[2020-06-18 07:55] VITALS: BP 141/85; PULSE 78; RESP 14; TEMP 36.6; O2SAT 96
--- NOTE | 2020-06-18 10:03 | PC.NURSE ---
Addendum entered by Jes King R.N. 06/18/20 14:54: At 1430, pt had another 200mls of emesis, total 300mls for this shift. Spoke with Xray, plan for last image around 1530 if the NGT can be held off from suction until after this. Addendum entered by Jes King R.N. 06/18/20 13:26: Pt back to Xray at 1225 via wheelchair and back at 1320. Pt had 100mls of emesis, stated feeling better after having emesis. IVF restarted. pt did rinse his mouth out with water, pt did not want any additional oral care at this time. Addendum entered by Jes King R.N. 06/18/20 11:25: pt ambulated for 20 mins in hallways at 1125, now settled back into bed to rest. Addendum entered by Jes King R.N. 06/18/20 11:10: Pt back from Xray at 1100, ambulating in halls indep with steady gait. Plan for next xray in 1-2 hours. NGT remains clamped at this time. Original Note: Day Shift- Pt A&OX4, able to make his needs known using call light. Denies pain or nausea. States abd bloating is less than yesterday. BSX4 hypoactive, no flatus yet. NGT to LIS, flushes by night RN, green liquid thin returns in NGT tubing. NGT clamped at 0840 for pt going to Small bowel follow through XR. And IVF paused at this time as well. Pt and [facility] [employer] aware our goal is to ambulate today with rest periods in between. no other voiced concerns.
[2020-06-18] MEDS: PANTOPRAZOLE 40 MG VIAL IV (11:50)
[2020-06-18] MEDS: ONDANSETRON 4 MG/2 ML INJ IV (11:50)
[2020-06-18] MEDS: POTASSIUM CHLORIDE 40 MEQ in SODIUM CHLORIDE 0.9% 500 ML 130 ML IV (11:50)
[2020-06-18] MEDS: ENOXAPARIN 40 MG/0.4 ML SYRINGE SUBCUT (11:50)
[2020-06-18 12:00] VITALS: BP 140/67; PULSE 76; RESP 16; TEMP 36.9; O2SAT 96
--- NOTE | 2020-06-18 14:30 | CM.DANOTE ---
Patient is a 64 year old male who was admitted on 06/17/20 for SBO. Pt has [facility] for insurance and his PCP is Dr. Emmanuel Ricci. EMR was reviewed. Per Surgeon, pt with SBO and currently NPO with NGT and to have SBFT today. SW attempted to meet bedside for assessment but pt off the floor this morning to xray for SBFT. Per RN, pt was off floor for a couple hours and returned and ambulated the halls and went back to xray for further SBFT and returned with some n/v even with his NG tube and is not feeling well and resting before his 3rd attempt for SBFT with imaging in about an hour. Plan: SW to follow closely after 3rd attempt at SBFT to rule out possible need for surgical intervention if SBFT not successful. D/C planning needs unclear at this time. HORTENCIA Elkins Discharge Planning/Care Management CM Discharge Assessment Start: 06/18/20 14:28 Freq: Status: Active Protocol: Document 06/18/20 14:28 BF (Rec: 06/18/20 14:29 BF [id number]) Discharge Planning Assessment Assigned Legal Librarian HORTENCIA Mitchell Advance Directives? No Advance Directives on File No History Provided By Patient,Medical Record Has Patient been admitted in last 30 No days? Prior Living Arrangements House Household Members spouse Type of transporation used prior to Drives own vehicle admit Independent with ADL's Yes Is patient alert and oriented? Yes Caregiver for Another No Comment Pending SBFT results and possible surgery needs Barriers to Discharge No Discharge Plan Home Transportation Arrangement Spouse available for transport at d.c Additional Comment Pending SBFT results and needs Review Status In Process Please Provide Date Initial DC 06/18/20 Assessment Was Performed Next Review Type Continued Stay Review
[2020-06-18 16:09] VITALS: BP 153/90; PULSE 102; RESP 15; TEMP 36.7; O2SAT 92
--- NOTE | 2020-06-18 18:36 | PC.NURSE ---
Addendum entered by Jeny Muller R.N. 06/18/20 21:36: pt had another 400cc of liquid, brown bowel movement. no n/v. denied pain. pt ambulated several times in the hallways Original Note: pt had a SBF. radiologist said ok for him to be placed on suction again. pt reports having small bowel movement, diarrhea like. pt also reports still feeling slightly nausea and bloated. placed pt on low intermittent suction and got 750cc out within 5 minutes.
[2020-06-18 20:36] VITALS: BP 132/86; PULSE 76; RESP 16; TEMP 37.3; O2SAT 96
[2020-06-18 23:52] VITALS: BP 146/87; PULSE 69; RESP 16; TEMP 36.5; O2SAT 96
--- NOTE | 2020-06-19 01:18 | PC.NURSE ---
Pt alert and oriented x4. SBA to restroom. Freqent watery stools. Pt denies any pain or n/v at this time. NGT set to low int suction as ordered. No complaints at this time. WCTM
[2020-06-19] MEDS: KCL 40 MEQ IN NS 1,000 ML 100 MEQ IV ×2 (03:06→15:22)
--- NOTE | 2020-06-19 03:55 | PC.NURSE ---
Pt complaining of 5/[address] eric give 2mg IV morphine q 4 hours as needed
[2020-06-19] MEDS: MORPHINE 2 MG/ML INJ IV (04:16)
[2020-06-19 05:49] VITALS: BP 147/87; PULSE 75; RESP 16; TEMP 36.6; O2SAT 94
[2020-06-19 05:51] LABS: Add Manual Diff / Slide Review NO; Basophils Absolute Auto 0 /uL (0-100); Basophils Percent Auto 0.3 % (0-2); Eosinophils Absolute Auto 0 /uL (0-450); Eosinophils Percent Auto 0.4 % (2-4); Hematocrit 43.3 % (41-53); Hemoglobin 14.5 g/dL (13.5-17.5); Lymphocytes Absolute Auto 900 /uL (1100-4500); Lymphocytes Percent Auto 10.7 % (25-40); Mean Corpuscular HGB Conc 33.5 % (30-36); Mean Corpuscular Hemoglobin 30.8 PG (26-34); Monocytes Absolute Auto 1000 /uL (0-900); Neutrophils Absolute Auto 6200 /uL (1500-7000); Neutrophils Percent Auto 76.6 % (50-75); Platelet Count 192 X10^3/uL (150-400); Red Cell Distribution Width 13.8 % (11.6-14.8); White Blood Cell Count 8.2 X10^3/uL (4.5-11.0)
[2020-06-19 05:57] LABS: BUN Creatinine Ratio 55.6 (6-22); Blood Urea Nitrogen 45 mg/dL (9-20); Calcium 8.5 mg/dL (8.4-10.2); Carbon Dioxide 34 mmol/L (22-32); Chloride 107 mmol/L (98-107); Estimated Glomerular Filt Rate > 60.0 mL/min (>60); Glucose 113 mg/dL (80-110); HEMOLYSIS < 15 (0-50); Magnesium 2.4 mg/dL (1.6-2.3); Phosphorous 3.4 mg/dL (2.3-3.7); Potassium 4.3 mmol/L (3.4-5.1); Sodium 144 mmol/L (137-145)
--- NOTE | 2020-06-19 07:26 | DI.RAD.S_ITS ---
PROCEDURE: XR KUB INDICATIONS: follow up SBFT; dilated bowel, retained contrast TECHNIQUE: One view of the abdomen acquired. COMPARISON: [facility], [place], [place] SMALL BOWEL FOLLOW THROUGH, 06/18/2020, 7:41. [facility], CR, XR ACUTE ABDOMEN SERIES, 06/17/2020, 18:18. FINDINGS: Surgical changes and devices: None. Bowel: Oral contrast has passed through the small-bowel and now is within the colon including the rectum. Small bowel gas prominence is again seen over the mid abdomen and pelvis.. Soft tissues: No suspicious abdominal calcifications. Visualized solid organ contours appear normal in size. Bones: No suspicious bony lesions. IMPRESSION: No bowel obstruction found. Small bowel prominence over the mid abdomen and pelvis in a pattern smaller suggestive of ileus than obstruction. Dictated by: Hudson Hays M.D. on 06/19/2020 at 8:21 Approved by: Hudson Hays M.D. on 06/19/2020 at 8:22
[2020-06-19] MEDS: ENOXAPARIN 40 MG/0.4 ML SYRINGE SUBCUT (08:46)
[2020-06-19] MEDS: PANTOPRAZOLE 40 MG VIAL IV (08:49)
[2020-06-19 08:50] VITALS: BP 143/89; PULSE 60; RESP 16; TEMP 36.7; O2SAT 94
--- NOTE | 2020-06-19 09:22 | PC.NURSE ---
Addendum entered by Jes King R.N. 06/19/20 13:45: Pt has ambulated X2 in hallways indep for 20 mins each time. Addendum entered by Jes King R.N. 06/19/20 11:04: Pt states having a 5/10 sharp pain to right lower abd lasting approx 5 mins. Pt had ambulated during that pain issue, upon reasessment pain 1/10. Pt did not want prn med at this time. Addendum entered by Jes King R.N. 06/19/20 10:13: SCD's left off as pt is ambulating frequently and indep from bed to chair. Ambulating in halls for 20 mins at a time and now having a shower. Original Note: Day Shift- Pt A&OX4, able to make needs known using call light. States feeling overall better than yesterday. denies nausea. Does state having more abd bloating than yesterday. Abd BT X4 very active. Pt states mid abd discomfort 1-2/10 and tolerable. NPO, ice chips for comfort. NGT to LIS per order. Clamped NGt at 0800 for pt going to XR. Dr. Zaidi in to see pt and verbal order to remove NGT which was done at 0850 without difficulty. Pt now on clear liquid diet and is aware to intake slowly. Ice water given for now. Pt currently ambulating around unit indep with IV pole and steady gait.
--- NOTE | 2020-06-19 15:21 | CM.DPC ---
DCP: continued: case received, EMR reviewed. Discussed in Team Rounds. Pt going again for more testing: small bowel follow-through. NGT remained in place and with NGT to LIS. Pt, as per prior days, has been up mobilizing in the halls. Dr. Zaidi or rounding partner will likely see pt later today. Progress note is still pending. Will check in tomorrow and follow prn.
[2020-06-19 15:44] VITALS: BP 134/85; PULSE 64; RESP 16; TEMP 36.8; O2SAT 96
--- NOTE | 2020-06-19 16:11 | PM.PN.1 ---
Subjective Subjective Date Patient Seen: 06/19/20 Time Patient Seen: 08:30 Interval history: No acute events overnight. The SBFT showed passage of contrast to the colon, albeit slowly. Exam Vital Signs (past 8 hours): - 06/19/20 08:50 06/19/20 15:44 Temperature 98.1 F 98.2 F Pulse Rate 60 64 Respiratory Rate 16 16 Blood Pressure 143/89 H 134/85 Pulse Oximetry 94 96 Oxygen Delivery Method Room Air Oxygen Flow Rate 0 Narrative Exam Narrative: GENERAL: Alert, comfortable. Appears stated age. Answers questions promptly and appropriately. Vital signs noted. HENT: Normocephalic, atraumatic. Hearing intact. NGT in place, removed during exam. EYES: Conjunctiva pink, sclera white, no periorbital swelling. CARDIOVASCULAR: Regular rate. No pedal edema. RESPIRATORY: Non-tachypneic, breathing comfortably on room air. GASTROINTESTINAL: Abdomen soft and non-tender. Mildly distended GENITALURINARY: No flank tenderness. Right inguinal hernia present, soft. MUSCULOSKELETAL: Equal tone and mass bilaterally. SKIN: Warm, dry, soft, appropriate color for ethnicity. No other lesions, rashes, or wounds. NEURO: Alert and Oriented X 3. No gross sensory deficits, or cognitive issues. PSYCH: Appropriate affect and mood. Objective Imaging Abdominal x-ray: Radiologist's impression: [address] [address] XRay Report Signed Patient: Lul MckinnonMR#: [id number] : 4Acct:[id number] Age/Sex: 64 / MDate of Service: 06/18/20 Loc: BP224-2 Accession Number: [id number] Procedure: FL small bowel follow through Ordering Provider: Pam Zaidi MD PROCEDURE: FL SMALL BOWEL FOLLOW THROUGH INDICATIONS: SBO, diagnostic and therapeutic COMPARISON: [facility], CT, CT ABDOMEN PELVIS W CON, 06/17/2020, 18:59. FINDINGS: KUB: Preprocedural key account manager film demonstrates persistence of multiple scattered loops of dilated small bowel as noted on comparison CT dated June 17, 2020. No suspicious abdominal calcifications. Visualized solid organ contours appear normal. No suspicious bony abnormalities. Small bowel/colon: There is prolonged transit time of oral contrast through the small bowel. Imaging of the abdomen approximately 10 hours after administration of oral contrast before oral contrast material is visualized within the colon. Contrast material is noted in the rectum at the end of the exam. There is persistent dilated loops of small bowel measuring up to 5 cm in diameter. Mucosal folds are smooth and of normal thickness. No strictures, intraluminal masses, or extrinsic mass effects are noted. IMPRESSION: Persistent dilated loops of small bowel with prolonged transit of ingested oral contrast from the stomach to the rectum. Dictated by: Linus Oneal M.D. on 06/18/2020 at 19:39 Approved by: Linus Onael M.D. on 06/18/2020 at 19:47 Labs Result Diagrams: 06/19/20 05:30 06/19/20 05:30 Labs: Laboratory Results - last 24 hr 06/19/20 06/19/20 05:30 05:30 WBC 8.2 RBC 4.70 Hgb 14.5 Hct 43.3 MCV 92.0 MCH 30.8 MCHC 33.5 RDW 13.8 Plt Count 192 Neut % (Auto) 76.6 H Lymph % (Auto) 10.7 L [place] % (Auto) 12.0 Eos % (Auto) 0.4 L Baso % (Auto) 0.3 Neut # (Auto) 6200 Lymph # (Auto) 900 L [place] # (Auto) 1000 H Eos # (Auto) 0 Baso # (Auto) 0 Sodium 144 Potassium 4.3 Chloride 107 Carbon Dioxide 34 H BUN 45 H Creatinine 0.81 Estimated GFR > 60.0 BUN/Creatinine Ratio 55.6 H Glucose 113 H Calcium 8.5 Phosphorus 3.4 Magnesium 2.4 H Assessment & Plan Assessment and plan (1) Recurrent right inguinal hernia: Status: Acute (2) History of right inguinal hernia repair: Status: Acute (3) Small bowel obstruction: Status: Acute (4) Hypertension: Status: Acute Assessment & Plan narrative: 64-year-old man admitted with small-bowel obstruction. SBFT showed contrast passing through. NGT removed this AM. Will begin to advance diet as tolerated. Plan Clear liquid diet as tolerated, advance diet as tolerated Ambulate as much as possible Subsequent plan pending small-bowel follow-through results DVT prophylaxis GI prophylaxis COVID-19 COVID-19 status: Negative Result date/Date tested (Pos, Neg/Pending): 06/17/20 Time Spent With Patient Time with patient: 15-24 minutes Quality VTE Deep Vein Thrombosis/Pulmonary Embolism Present on Admission: No
[2020-06-19 20:27] VITALS: BP 144/90; PULSE 56; RESP 16; TEMP 36.8; O2SAT 98
[2020-06-19 23:20] VITALS: BP 144/88; PULSE 67; RESP 16; TEMP 36.2; O2SAT 97
[2020-06-20] MEDS: KCL 40 MEQ IN NS 1,000 ML 100 MEQ IV (02:55)
[2020-06-20 03:47] VITALS: BP 139/80; PULSE 65; RESP 16; TEMP 36.3; O2SAT 98
[2020-06-20 05:32] LABS: Add Manual Diff / Slide Review NO; Basophils Absolute Auto 0 /uL (0-100); Basophils Percent Auto 0.7 % (0-2); Eosinophils Absolute Auto 200 /uL (0-450); Eosinophils Percent Auto 3.9 % (2-4); Hematocrit 39.2 % (41-53); Hemoglobin 12.9 g/dL (13.5-17.5); Lymphocytes Absolute Auto 1400 /uL (1100-4500); Lymphocytes Percent Auto 25.1 % (25-40); Mean Corpuscular Hemoglobin 30.5 PG (26-34); Mean Corpuscular Volume 92.5 fL (80-100); Monocytes Absolute Auto 1000 /uL (0-900); Monocytes Percent Auto 17.3 % (3-14); Neutrophils Absolute Auto 2900 /uL (1500-7000); Platelet Count 166 X10^3/uL (150-400); Red Blood Cell Count 4.24 X10^6/uL (4.5-5.9); Red Cell Distribution Width 13.3 % (11.6-14.8); White Blood Cell Count 5.5 X10^3/uL (4.5-11.0)
[2020-06-20 05:41] LABS: BUN Creatinine Ratio 39.1 (6-22); Blood Urea Nitrogen 27 mg/dL (9-20); Carbon Dioxide 32 mmol/L (22-32); Chloride 106 mmol/L (98-107); Estimated Glomerular Filt Rate > 60.0 mL/min (>60); Glucose 87 mg/dL (80-110); HEMOLYSIS < 15 (0-50); Magnesium 2.1 mg/dL (1.6-2.3); Phosphorous 2.3 mg/dL (2.3-3.7); Potassium 5.1 mmol/L (3.4-5.1); Sodium 136 mmol/L (137-145)
[2020-06-20 07:44] VITALS: BP 124/85; PULSE 58; RESP 19; TEMP 36.7; O2SAT 98
[2020-06-20] MEDS: SODIUM CHLORIDE 0.9% FLUSH 10 ML IV (09:11)
[2020-06-20] MEDS: lisinopriL 5 MG TABLET PO (09:11)
[2020-06-20] MEDS: PANTOPRAZOLE 40 MG VIAL IV (09:11)
[2020-06-20] MEDS: ENOXAPARIN 40 MG/0.4 ML SYRINGE SUBCUT (09:11)
--- NOTE | 2020-06-20 09:51 | P.DS_ITS ---
History of Present Illness History of Present Illness Chief complaint: intestinal troubles Narrative: This is a 64 yo man with history of HTN, bilateral inguinal hernia repair as a child, and recurrent inguinal hernia on the right side. On Tuesday he ate some chicken that had been sitting out for a while. Afterward, he began to have stomach cramps. The pain down into a bloated feeling, but he has not passed any gas since Tuesday. He had a small hard BM yesterday. He came into the ER because he could not get any relief. He has never had an episode like this before. He reports that he is very healthy. PMH: HTN PSH: bilateral inguinal hernia repair in childhood SOC: denies tob, denies EtOH for past 1 year, occasional marijuana FMH: denies HTN, DM, GI disorders ALlergies: denies HOme meds: Lisinopril ROS: Pt denies headache, fever, weight loss, dysuria, confusion, melena, hematochezia. Thirteen system review is otherwise negative other than as mentioned below and in HPI. PE: GENERAL: Well groomed and cooperative. Appears stated age. Answers questions promptly and appropriately. Vital signs noted. HENT: Normocephalic, atraumatic. Hearing intact. Oral mucosa is pink and moist. NGT in place sumping thick brown and bilious material EYES: Conjunctiva pink, sclera white, no periorbital swelling. CARDIOVASCULAR: Regular rate. No pedal edema. RESPIRATORY: Non-tachypneic, breathing comfortably on room air. GASTROINTESTINAL: Abdomen soft, nontender, moderately distended GENITALURINARY: No flank tenderness. soft, reducible right inguinal hernia, no palpable left inguinal hernia MUSCULOSKELETAL: Equal tone and mass bilaterally. SKIN: Warm, dry, soft, appropriate color for ethnicity. No other lesions, rashes, or wounds. NEURO: Alert and Oriented X 3. No gross sensory deficits, or cognitive issues. PSYCH: Appropriate mood and affect, normal intellect Discharge Providers Provider Date of admission: 06/17/20 19:25 Discharge Date: 06/20/20 Primary care physician: Emmanuel Ricci MD Discharge provider: Pam Zaidi MD Summary Hospital Course Discharge Diagnosis: SBO, recurrent right inguinal hernia Hospital Course: Pt had NGT decompression and SBFT which resulted in return of bowel function. He was tolerating PO and passing gas and stool at the time of discharge. Status at Discharge Cognitive/behavioral status at discharge: at baseline, oriented Functional status at discharge: independent ambulation Overall status at discharge: patient is progressing back to baseline Time Spent with Patient Time spent: Greater than 30 minutes Exam Vital Signs (past 8 hours): - 06/20/20 03:47 06/20/20 07:44 Temperature 97.3 F L 98.1 F Pulse Rate 65 58 L Respiratory Rate 16 19 Blood Pressure 139/80 124/85 Pulse Oximetry 98 98 Oxygen Delivery Method Room Air Oxygen Flow Rate 0 Narrative Exam Narrative: PE: GENERAL: Well groomed and cooperative. Appears stated age. Answers questions promptly and appropriately. Vital signs noted. HENT: Normocephalic, atraumatic. Hearing intact. Oral mucosa is pink and moist. EYES: Conjunctiva pink, sclera white, no periorbital swelling. CARDIOVASCULAR: Regular rate. No pedal edema. RESPIRATORY: Non-tachypneic, breathing comfortably on room air. GASTROINTESTINAL: Abdomen soft and non-distended GENITALURINARY: No flank tenderness. MUSCULOSKELETAL: Equal tone and mass bilaterally. SKIN: Warm, dry, soft, appropriate color for ethnicity. No other lesions, rashes, or wounds. NEURO: Alert and Oriented X 3. No gross sensory deficits, or cognitive issues. PSYCH: Appropriate mood and affect, normal intellect Objective Labs Result Diagrams: 06/20/20 05:08 06/20/20 05:08 Labs: Laboratory Results - last 24 hr 06/20/20 06/20/20 05:08 05:08 WBC 5.5 RBC 4.24 L Hgb 12.9 L Hct 39.2 L MCV 92.5 MCH 30.5 MCHC 33.0 RDW 13.3 Plt Count 166 Neut % (Auto) 53.0 D Lymph % (Auto) 25.1 [place] % (Auto) 17.3 H Eos % (Auto) 3.9 Baso % (Auto) 0.7 Neut # (Auto) 2900 Lymph # (Auto) 1400 [place] # (Auto) 1000 H Eos # (Auto) 200 Baso # (Auto) 0 Sodium 136 L Potassium 5.1 Chloride 106 Carbon Dioxide 32 BUN 27 H Creatinine 0.69 Estimated GFR > 60.0 BUN/Creatinine Ratio 39.1 H Glucose 87 Calcium 8.0 L Phosphorus 2.3 D Magnesium 2.1 Discharge Assessment & Plan Assessment and Plan Assessment: SBO and recurrent right inguinal hernia Plan of Treatment: Advance diet as tolerated, stay well hydrated, follow up regarding inguinal hernia Discharge Plan Discharge Plan Patient Disposition: Home Discharge comment: Make sure you stay well hydrated, and eat easy to digest foods as tolerated. Start with things that are easy to digest, and gradually advanced your diet as you feel comfortable. Things like uncooked vegetables, fruit peels, and hard meats can worsen your obstructive symptoms. Be cautious with these types of foods, as you advance your diet. If you have recurrent obstructive symptoms, go back to clear liquids and slowly advance yourself as to lerated. If you have intractable vomiting, you need to return to the ER. Discharge orders & Medications Prescriptions: Continued lisinopril 5 mg Tablet 5 mg PO DAILY RF: 0 Follow up/Referrals: Emmanuel Ricci MD [Primary Care Provider] - Pam Zaidi MD [Physician] - (Please call next week to make a follow-up appointment to be seen to discuss repair of your right inguinal hernia) Diet/Activity/Treatments Diet: Diet as Tolerated Diet comment: Start off on liquids, and things that are easy to digest. Skin/Wound/Dressing Care Report to your healthcare provider any signs of infection, such as:: chills, fever, night sweats, increased pain, unusual drainage and unusual redness Visit Report/Discharge Packet Instructions: Low-Fiber/Low-Residue Diet, DI for Small Bowel Obstruction, How to Prevent Falls Visit Report Forms: Patient Portal/API, Stroke Signs & Symptoms Discharge Data Primary Care Provider: Emmanuel Ricci Discharges patient from system. Discharge Date/Time: 06/20/20 13:39 Quality VTE Deep Vein Thrombosis/Pulmonary Embolism Present on Admission: No
[2020-06-20 12:00] VITALS: BP 137/86; RESP 18; TEMP 36.6; O2SAT 58
--- NOTE | 2020-06-20 13:19 | PC.NURSE ---
Day shift: Pt d/c'd today. Will be walked out to car as he does not want the WC. Car is driven by his spouse. DEEDEE Geronimo walked them out. Paperwork is signed and all questions answered. Pt has all personal belongings. No new MD scripts. Left AC unit at approx 1440.
--- NOTE | 2020-06-20 13:33 | CM.DPC ---
DCP: continued: Dr. Zaidi was here and ok'd pt for d/c to home. He has already left for home in company of his . Hunter Kahn stated pt was anticipating the he would be able to leave today.
== END 2020-06-20 13:39 | disposition home or self-care (01) | DRG 390 ==
LOC: ED 19:20 → AC 19:26
PROVIDERS: Emergency Medicine; Admitting Provider Surgery; Emergency Provider Emergency Medicine; PCP Student in an Organized Health Care Education/Training Program; Referring Provider Emergency Medicine; Visit Provider Surgery
DX: K56.50 Intestinal adhesions [bands], unspecified as to partial versus complete obstruction (principal); K40.91 Unilateral inguinal hernia, without obstruction or gangrene, recurrent; I10 Essential (primary) hypertension; Z11.59 Encounter for screening for other viral diseases
CPT/HCPCS: 36415; 71045; 74018; 74022; 74177; 74250; 80048; 80053; 81003; 81015; 83690; 83735; 84100; 85025; 85610; 85730; 87635; 93005; 96360; 96361; 99222; 99231; 99238; 99285; C9113; J1650; J2270; J2405; J3480; Q9967

== ENCOUNTER 2020-06-22 08:52 | Emergency (ER) | payer OTHER, SELFPAY ==
[2020-06-17 20:27] VITALS: BMI 25.7
[2020-06-22 09:15] VITALS: BP 147/78; PULSE 64; RESP 16; TEMP 36.5; O2SAT 98; BMI 26.3
--- NOTE | 2020-06-22 09:20 | ED_ITS ---
HPI - Male Genitourinary General Chief complaint: Urogenital-Male Stated complaint: Urinary problems Time Seen by Provider: 06/22/20 09:00 Source: patient Mode of arrival: Ambulatory Limitations: no limitations History of Present Illness HPI Narrative: 4M non smoker without medical history presents of prostatitis and bowel obstruction with a chief complaint of increasing suprapubic fullness and tenderness and inability to urinate for the past few days. He denies any history of urinary retention but has had difficulties in the past few days. He was recently seen and evaluated by myself for upper abdominal pain and found to have a bowel obstruction and was admitted for few days and just discharged on Tuesday. His abdominal pain in the epigastrium is much better now. He denies any fever chills. Denies nausea or vomiting. He presented initially to the walk-in clinic and due to their suspicion of urinary retention he was sent here for bladder scan and likely catheter placement Complaint: other Related Data Home Medications Medication Instructions Recorded Confirmed lisinopril 5 mg PO DAILY 06/17/20 06/22/20 Allergies Allergy/AdvReac Type Severity Reaction Status Date / Time No Known Drug Allergies Allergy Verified 06/22/20 08:35 Review of Systems Constitutional Constitutional: Denies chills, Denies fatigue, Denies fever(s), Denies frequent falls, Denies lethargy and Denies weakness Eyes Eyes: Denies change in vision, Denies eye discharge, Denies irritation and Denies loss of vision ENT Ears, Nose, Mouth, and Throat: Denies change in voice, Denies dizziness, Denies neck pain, Denies sore throat and Denies throat swelling Cardiovascular Cardiovascular: Denies chest pain, Denies irregular heart rhythm, Denies lightheadedness, Denies palpitations, Denies dyspnea, Denies dyspnea on exertion and Denies orthopnea Respiratory Respiratory: Denies cough, Denies dyspnea, Denies dyspnea on exertion and Denies wheezing Gastrointestinal Gastrointestinal: Denies abdominal pain, Denies change in bowel habits, Denies diarrhea, Denies nausea and Denies vomiting Genitourinary Genitourinary: Reports oliguria, Reports difficulty urinating and Reports other (suprapubic tenderness) Musculoskeletal Musculoskeletal: Denies neck pain and Denies numbness Integumentary/Breasts Skin/Breast: Denies pruritus, Denies erythema, Denies rash and Denies wounds Neurologic Neurologic: Denies behavioral changes, Denies confusion, Denies dizziness, Denies frequent falls, Denies loss of vision, Denies numbness and Denies weakness Psychiatric Psychiatric: Denies anxiety, Denies behavioral changes, Denies confusion, Denies depression, Denies homicidal ideation and Denies suicidal ideation Endocrine Endocrine: Denies fatigue, Denies flushing and Denies palpitations Hematologic/Lymphatic Hematologic/Lymphatic: Denies easy bruising Allergic/Immunologic Allergic/Immunologic: Denies urticaria, Denies throat swelling and Denies wheezing Patient History Social History household members: spouse Smoking Status: Never smoker alcohol intake: former Smoking Status: Never smoker alcohol intake frequency: 0-2 drinks per day Substance Use Type: does not use Exam Narrative Exam Narrative: GENERAL: [64] year old patient appears stated age. Well- nourished, well-developed patient, in mild distress. HEAD: Atraumatic. Normocephalic. EYES: Pupils equal round and reactive. Extraocular motions intact. No scleral icterus. No injection or drainage. ENT: Nose without bleeding, purulent drainage. Throat without erythema, tonsillar hypertrophy or exudate. Airway patent. NECK: Trachea midline. Non tender CARDIOVASCULAR: Regular rate and rhythm without murmurs, gallops, or rubs. RESPIRATORY: Clear to auscultation. Breath sounds equal bilaterally. No wheezes, rales, or rhonchi. GASTROINTESTINAL: Abdomen soft, suprapubic tenderness, nondistended. EXTREMITIES: No edema or joint tenderness. BACK: Nontender without deformity or crepitance. No flank tenderness. NEURO: AOx3. SKIN: No rash or erythema of visible areas Initial Vital Signs Initial Vital Signs: Vital Signs Temperature 97.7 F 06/22/20 09:15 Pulse Rate 64 06/22/20 09:15 Respiratory Rate 16 06/22/20 09:15 Blood Pressure 147/78 H 06/22/20 09:15 Pulse Oximetry 98 06/22/20 09:15 Course Course Course Narrative: bladder scan notes nearly 700mL significant improvement after nursing places riggs Vital Signs Vital signs: Vital Signs - 8 hr 06/22/20 09:15 06/22/20 10:25 06/22/20 10:56 Temperature 97.7 F Pulse Rate 64 74 63 Respiratory Rate 16 16 Blood Pressure 147/78 H 131/75 118/76 Pulse Oximetry 98 99 98 Discharge Plan Departure Patient Disposition: Home Clinical Impression: Acute retention of urine Discharge Date/Time: 06/22/20 10:58 Instructions: DI for Urinary Retention in Men Activity Restrictions/Additional Instructions: *You have been diagnosed with [urinary retention, likely a consequence of your history of prostate trouble, perhaps also recent pain medications have used] *What to do: *Take medications as directed *Please follow up with Urology this week. Call the office tomorrow morning and let them know you were seen in the Emergency Department and we need you to be seen early in the week *Return to ER if you should have any new, worsening or concerning symptoms Prescriptions: No Action lisinopril 5 mg Tablet 5 mg PO DAILY RF: 0 Referrals: Emmanuel Ricci MD [Primary Care Provider] - Bernadette Walls MD [Physician] -
[2020-06-22 10:25] VITALS: BP 131/75; PULSE 74; O2SAT 99
[2020-06-22 10:56] VITALS: BP 118/76; PULSE 63; RESP 16; O2SAT 98
== END 2020-06-22 10:58 | disposition home or self-care (01) ==
PROVIDERS: Emergency Provider Emergency Medicine; PCP Student in an Organized Health Care Education/Training Program
DX: R33.9 Retention of urine, unspecified (principal); R34 Anuria and oliguria
CPT/HCPCS: 51701; 51798; 99283; 99284

== ENCOUNTER → 2020-09-23 09:45 | Outpatient (CLI) | payer OTHER, SELFPAY ==
[2020-06-17 20:27] VITALS: BMI 25.7
[2020-09-23 11:34] LABS: COVID19 -Nasal RAPID Negative (Negative)
== END ==
PROVIDERS: PCP Internal Medicine; Visit Provider Surgery
DX: Z01.812 Encounter for preprocedural laboratory examination (principal); Z20.828 Contact with and (suspected) exposure to other viral communicable diseases
CPT/HCPCS: 87635; C9803

== ENCOUNTER 2020-09-24 09:25 | Day surgery (SDC) | payer OTHER, SELFPAY ==
[2020-06-17 20:27] VITALS: BMI 25.7
[2020-09-22 15:24] VITALS: BMI 26.3
[2020-09-24 10:04] VITALS: BP 125/82; PULSE 62; RESP 16; TEMP 36.4; O2SAT 99; BMI 26.3
[2020-09-24] MEDS: LACTATED RINGERS 1,000 ML 42 ML IV (10:15)
--- NOTE | 2020-09-24 10:52 | PM.PREOP ---
Pre-operative Note COVID-19 COVID-19 status: Negative Result date/Date tested (Pos, Neg/Pending): 09/23/20 Interval Note History & Physical reviewed/Exam performed by Physician: Yes Changes to H&P: No
[2020-09-24] MEDS: CEFAZOLIN 2 GM/100 ML FROZ.PIGGY IV (11:17)
--- NOTE | 2020-09-24 11:47 | SUR.OPER ---
Supine on padded OR bed, head on pillow, arms secured on padded arm boards at <90 degrees abduction, legs uncrossed, safety belt at thigh, tape over blanket over lower legs.
[2020-09-24] MEDS: BUPIVACAINE 0.25% W/ EPI (PF) 10 ML VIAL 20 ML INJ (11:52)
[2020-09-24] MEDS: BUPIVACAINE LIPOSOME 266 MG/20 ML VIAL INJ (12:19)
[2020-09-24 12:53] VITALS: BP 131/76; PULSE 92; RESP 20; TEMP 36.1; O2SAT 95
[2020-09-24 12:59] VITALS: BP 126/77; PULSE 85; RESP 11; TEMP 36.1; O2SAT 96
--- NOTE | 2020-09-24 13:01 | P.OP_ITS ---
Operative Date/Time/Diagnoses Date of procedure: 09/24/20 Time of procedure: 13:01 Pre-op diagnosis: recurrent right inguinal hernia Post-op diagnosis: other (Recurrent, direct incarcerated right inguinal hernia) Procedure & Clinicians Procedure: Open repair of right inguinal hernia with mesh Same procedure as scheduled: Yes Indications: Recurrent incarcerated direct right inguinal hernia Surgeon: Pam Zaidi Anesthesia Type: General Operative Notes Findings: Large direct hernia in the right groin with retroperitoneal fat incarcerated in the sac Specimen(s): none sent Prosthetic devices, grafts, tissues, transplants, or devices: Lightweight polypropylene macro porous inguinal hernia mesh Estimated Blood Loss (mL): 1 Procedure in detail: The patient was brought into the OR, placed supine on the OR table, and appropriate preoperative antibiotics were given. Sequential compression devices were placed on both legs and turned on. General anesthesia was induced and the patient was intubated with an LMA by the anesthesiologist. The right lower abdomen and groin were prepped and draped in sterile fashion for inguinal incision. A surgical time out was conducted. Local anesthetic was infiltrated into the skin and a 15 blade was used to make an oblique 10cm incisi on two finger breadths superior to the inguinal ligament in the right groin. Dissection was carried down to through the subcutaneous fat and enrique's fascia. Dissection was carried down to the aponeurosis of the external oblique. I could see a bulging hernia sac coming through the external ring, with dense scar tissue surrounding it. Using a fresh 15 blade, I opened the aponeurosis after giving generous local anesthetic. There was a large direct hernia encompassing most of the canal floor from pubic tubercle to the internal ring. Prolonged dissection was required to free the incarcerated hernia sac from the surrounding fascia in subcutaneous fat. I opened the sac and dissected free the retroperitoneal fat which was attached to the inner surface of the sac. Once it was free I was able to completely reduce it into the abdomen, and close the floor of the inguinal canal in 2 layers. Once the canal floor was recreated, with a running layer of 3-0 Vicryl, and a running layer of 2-0 PDS, I then gave local anesthetic in the inguinal canal floor, pubic tubercle, and conjoint tendon, using a total of 50mL of 0.25% Marcaine with Epi. I also infiltrated the area superior to Poupart's ligament with 20mL Exparel in small aliquots. A BARD macroporous lightweight inguinal hernia mesh was then brought into the field and shaped to fit the groin. I secured it to the ligaments overlying the pubic tubercle with 2cm overlap, and then secured it to the inguinal ligament inferiorly and the conjoint tendon superiorly with 2-0 PDS suture. I made an opening in the mesh to accommodate the spermatic cord, ensuring it was appropriately sized to avoid strangulation of the cord. Once the mesh was secure, I closed the external oblique aponeurosis with 3-0 Vicryl. I closed the Enrique's fascia with 3-0 Vicryl. The remaining local anesthetic was given in the skin and soft tissue. The skin was closed with running 4-0 Monocryl subcuticular stitch. The skin edges were sealed with Dermabond. The patient was awakened from anesthesia and extubated. He tolerated the procedure well. Needle, sponge and instrument counts were correct x 2. The patient was transferred to PACU in stable condition. Complications: none Post-operative Condition: stable Disposition: PACU
[2020-09-24 13:02] VITALS: BP 136/78; PULSE 92; RESP 12; TEMP 36.3; O2SAT 97
[2020-09-24 13:07] VITALS: BP 125/76; PULSE 90; RESP 12; TEMP 36.2; O2SAT 95
[2020-09-24 13:19] VITALS: BP 133/86; PULSE 86; RESP 18; TEMP 36.2; O2SAT 94
== END 2020-09-24 13:37 | disposition home or self-care (01) ==
PROVIDERS: PCP Internal Medicine; Referring Provider Internal Medicine; Visit Provider Surgery
PROC: (CPT 49521; principal; 2020-09-24 10:45)
DX: K40.31 Unilateral inguinal hernia, with obstruction, without gangrene, recurrent (principal); I10 Essential (primary) hypertension
CPT/HCPCS: 49521; C1781; C9290; J0690; J1100; J2250; J2405; J2704; J3010

== ENCOUNTER → 2020-11-06 13:48 | Outpatient (CLI) | payer MEDICARE, SELFPAY ==
[2020-06-17 20:27] VITALS: BMI 25.7
[2020-11-06] MEDS: COVID-19 VACC #1, MRNA(MOD) 100 MCG/0.5 ML VIAL IM (13:51)
== END ==
PROVIDERS: PCP Internal Medicine; Visit Provider Internal Medicine
DX: Z23 Encounter for immunization (principal)
CPT/HCPCS: 0011A; 91301

== ENCOUNTER → 2020-12-04 13:36 | Outpatient (CLI) | payer MEDICARE, SELFPAY ==
[2020-06-17 20:27] VITALS: BMI 25.7
[2020-12-04] MEDS: COVID-19 VACC #2, MRNA(MOD) 100 MCG/0.5 ML VIAL IM (13:40)
== END ==
PROVIDERS: PCP Internal Medicine; Visit Provider Internal Medicine
DX: Z23 Encounter for immunization (principal)
CPT/HCPCS: 0012A; 91301

== ENCOUNTER → 2021-07-15 08:00 | Outpatient (CLI) | payer OTHER, SELFPAY ==
[2020-06-17 20:27] VITALS: BMI 25.7
[2021-07-15 09:28] LABS: Alanine Aminotransferase 24 IU/L (<50); Albumin Globulin Ratio 1.3 (1.0-2.8); Alkaline Phosphatase 71 U/L (38-126); Aspartate Aminotransferase 26 IU/L (17-59); BUN Creatinine Ratio 25.4 (6-22); Bilirubin Total 0.6 mg/dL (0.2-1.3); Blood Urea Nitrogen 17 mg/dL (9-20); Calcium 9.1 mg/dL (8.4-10.2); Carbon Dioxide 34 mmol/L (22-32); Chloride 100 mmol/L (98-107); Cholesterol 189 mg/dL (140-199); Estimated Glomerular Filt Rate > 60.0 mL/min (>60); Globulin 3.2 g/dL (1.7-4.1); Glucose 99 mg/dL (80-110); HDL Cholesterol 62 mg/dL (40-60); HEMOLYSIS < 15 (0-50); LDL Cholesterol Calculated 109 mg/dL (<100); Potassium 3.9 mmol/L (3.4-5.1); Sodium 138 mmol/L (137-145); Total Protein 7.2 g/dL (6.3-8.2); Triglycerides 90 mg/dL (35-150)
== END ==
PROVIDERS: PCP Internal Medicine; Referring Provider Internal Medicine; Visit Provider Internal Medicine
DX: I10 Essential (primary) hypertension (principal); Z13.220 Encounter for screening for lipoid disorders
CPT/HCPCS: 36415; 80053; 80061

== ENCOUNTER → 2021-07-24 12:04 | Outpatient (CLI) | payer OTHER, SELFPAY ==
[2020-06-17 20:27] VITALS: BMI 25.7
[2021-07-25 09:39] LABS: PSA Free % 17.7 % (.); PSA, Total 3.9 ng/mL (0.0-4.0)
== END ==
PROVIDERS: PCP Internal Medicine; Referring Provider Urology; Visit Provider Urology
DX: R97.20 Elevated prostate specific antigen [PSA] (principal)
CPT/HCPCS: 36415; 84153; 84154

== ENCOUNTER 2021-11-14 20:34 | Emergency (ER) | payer OTHER, SELFPAY ==
[2020-06-17 20:27] VITALS: BMI 25.7
[2021-11-14 20:41] VITALS: BP 172/98; PULSE 81; RESP 18; TEMP 36.6; O2SAT 97; BMI 26.9
--- NOTE | 2021-11-14 20:48 | PC.NURSE ---
Pt bladder scanned for 999+, riggs cath place in past for retention.
[2021-11-14] MEDS: LIDOCAINE 2% (GLYDO) 6 ML GEL TOP (21:10)
--- NOTE | 2021-11-14 21:28 | ED.MALEGU ---
HPI - Male Genitourinary General Chief complaint: Urogenital-Male Stated complaint: urinary retention Time Seen by Provider: 11/14/21 20:57 Source: patient Mode of arrival: Ambulatory History of Present Illness HPI Narrative: Patient is a 85-year-old male history of BPH and hypertension presenting today with inability to urinate. He said he did urinate a little bit 3 hours ago but has had increasing abdominal pain. Bladder scan today showed over 1 L. Diamond catheter has been placed nonbloody urine returned. Overall feeling significantly better after catheter. He was previously seeing Dr. Pickett however now after she left he is seeing Dr. Cuenca. Related Data Home Medications Medication Instructions Recorded Confirmed tamsulosin 0.4 mg capsule 0.4 mg PO DAILY cap 09/15/20 11/14/21 Previous Rx's Medication Instructions Recorded lisinopril 10 mg tablet 5 mg PO DAILY #90 tab 06/29/21 Allergies Allergy/AdvReac Type Severity Reaction Status Date / Time No Known Drug Allergies Allergy Verified 11/14/21 20:44 Review of Systems Review of Systems Narrative: GENERAL: Denies chills,fever HEENT: Denies throat pain RESPIRATORY: Denies dyspnea, cough, wheezing CARDIOVASCULAR: Denies chest pain, palpitations GASTROINTESTINAL: Denies nausea, vomiting : See HPI MUSCULOSKELETAL: Denies extremity pain, injury SKIN: No rash, no laceration, no pruritus NEUROLOGIC: Denies weakness, dizziness, headache, numbness 8 point review of systems is negative except for those stated above and HPI Patient History Medical History Arthritis BPH w urinary obs/LUTS Elevated PSA History of small bowel obstruction Hypertension Recurrent right inguinal hernia Small bowel obstruction Transient global amnesia Surgical History History of right inguinal hernia repair History of skin surgery (~1970) Hx of hernia repair Hx of tonsillectomy Status post right inguinal hernia repair Family History Father Heart disease Mother Cancer Social History marital status: household members: spouse occupational status: previously employed Smoking Status: Never smoker alcohol intake: former substance use type: does not use Smoking Status: Never smoker alcohol intake frequency: holidays/special occasions only Substance Use Type: does not use Exam Initial Vital Signs Initial Vital Signs: Vital Signs Temperature 98 F 11/14/21 20:41 Pulse Rate 81 11/14/21 20:41 Respiratory Rate 18 11/14/21 20:41 Blood Pressure 172/98 H 11/14/21 20:41 Pulse Oximetry 97 11/14/21 20:41 GENERAL: Alert well-appearing 65-year-old male CARDIOVASCULAR: peripheral pulses in tact, cap refill <2 sec RESPIRATORY: No respiratory distress, speaks in full sentences without difficulty ABDOMEN: Soft, nontender, no guarding or rebound : Diamond catheter placed yellow urine EXTREMITIES: Normal range of motion, no clubbing or edema. Neurovascularly intact NEUROLOGICAL: Cranial nerves II through XII grossly intact. Normal gait and speech. SKIN: Warm, dry, no petechiae, no rashes or lesions. Course Orders Ordered: ED Orders 11/14/21 21:05 Urine Microscopic Stat Discontinued Medications Lidocaine HCl (Lidocaine 2% (Glydo) 6 Ml Gel) 6 ml TOP NOW ONE Stop: 11/14/21 20:54 Last Admin: 11/14/21 21:10 Dose: 6 ml Documented by: JEROME Vital Signs Vital signs: Vital Signs - 8 hr 11/14/21 20:41 11/14/21 21:37 Temperature 98 F Pulse Rate 81 68 Respiratory Rate 18 16 Blood Pressure 172/98 H 126/74 Pulse Oximetry 97 96 MDM - Male Genitourinary Lab Data Labs: Lab Results 11/14/21 Range/Units 21:05 Urine RBC 1-5/hpf (0-5/HPF) Urine WBC None seen (0-5/HPF) Ur Squamous Epith Cells 0-1 /hpf (0-5/HPF) Urine Bacteria None seen (None) Ur Culture Indicated? Cult not indicated Urine Dip Bedside Urine Glucose Negative Bedside Urine Bilirubin - Negative Bedside Urine Ketone - Negative Urine Specific [place] 1.010 Bedside Urine Occult Blood +++ Bedside Urine pH 6.0 Bedside Urine Protein - Negative Bedside Urine Urobilinogen - Negative Bedside Urine Nitrite - Negative Bedside Urine Leukocytes - Negative Esterase MDM Narrative Medical decision making narrative: Symptoms completely resolved with Diamond catheter placement. Prior history of BPH. He has a urologist to follow-up with. He is already taking Flomax. Discharge Plan Departure Patient Disposition: Home Clinical Impression: Acute urinary retention Instructions: DI for Urinary Retention in Men Activity Restrictions/Additional Instructions: *You have been diagnosed with urinary retention *What to do: At this time keep Diamond catheter in place for 1-2 weeks have urology take it out. *Continue to take medications as directed *Follow up with your primary care provider in 2-3 days or call [phone] Call Urology on Tuesday to schedule follow-up appointment *Return to ER if you should have decrease year old is blood catheter or any new, worsening or concerning symptoms Prescriptions: No Action tamsulosin 0.4 mg capsule 0.4 mg PO DAILY 0RF lisinopril 10 mg tablet 5 mg PO DAILY Qty: 90 3RF Referrals: Christin Cuenca MD [Non-Staff] - Arnel Dent MD [Primary Care Provider] -
[2021-11-14 21:37] VITALS: BP 126/74; PULSE 68; RESP 16; O2SAT 96
[2021-11-14 22:18] LABS: Bacteria Urine None Seen; Culture Indicated Urine Cult Not Indicated; RBC Urine 1-5/HPF (0-5/HPF); Squamous Epithelial Cell Urine 0-1 /HPF (0-5/HPF); WBC Urine None Seen (0-5/HPF)
== END 2021-11-14 21:47 | disposition home or self-care (01) ==
PROVIDERS: Emergency Provider Emergency Medicine; PCP Internal Medicine
DX: R33.9 Retention of urine, unspecified (principal); Z46.6 Encounter for fitting and adjustment of urinary device
CPT/HCPCS: 51702; 51798; 81003; 81015; 99283

== ENCOUNTER → 2022-11-18 14:20 | Outpatient (CLI) | payer OTHER, SELFPAY ==
[2020-06-17 20:27] VITALS: BMI 25.7
[2022-11-19 15:12] LABS: Fecal Immunochemical Test Negative (Negative)
== END ==
PROVIDERS: PCP Internal Medicine; Referring Provider Internal Medicine; Visit Provider Internal Medicine
DX: Z12.11 Encounter for screening for malignant neoplasm of colon (principal); Z12.12 Encounter for screening for malignant neoplasm of rectum
CPT/HCPCS: 82274

== ENCOUNTER → 2022-11-18 15:22 | Outpatient (CLI) | payer OTHER, SELFPAY ==
[2020-06-17 20:27] VITALS: BMI 25.7
[2022-11-18 17:34] LABS: Alanine Aminotransferase 27 IU/L (<50); Albumin 3.6 g/dL (3.5-5.0); Albumin Globulin Ratio 1.1 (1.0-2.8); Alkaline Phosphatase 87 U/L (38-126); Aspartate Aminotransferase 27 IU/L (17-59); BUN Creatinine Ratio 22.1 (6-22); Bilirubin Total 0.5 mg/dL (0.2-1.3); Blood Urea Nitrogen 15 mg/dL (9-20); Calcium 8.6 mg/dL (8.4-10.2); Carbon Dioxide 26 mmol/L (22-32); Chloride 101 mmol/L (98-107); Estimated Glomerular Filt Rate > 60 mL/min (>60); Globulin 3.4 g/dL (1.7-4.1); Glucose 89 mg/dL (80-110); HEMOLYSIS 19 (0-50); Sodium 137 mmol/L (137-145)
== END ==
PROVIDERS: PCP Internal Medicine; Referring Provider Internal Medicine; Visit Provider Internal Medicine
DX: C61 Malignant neoplasm of prostate (principal); I10 Essential (primary) hypertension; Z12.11 Encounter for screening for malignant neoplasm of colon; Z12.12 Encounter for screening for malignant neoplasm of rectum
CPT/HCPCS: 36415; 80053; 82274